=== PATIENT | female | born 1985 | race Caucasian/White ===

== ENCOUNTER 2018-01-08 16:01 | Emergency (ER) | payer OTHER ==
[~2018-01-08] VITALS: Ht 160 cm; Wt 45.4 kg
[2018-01-08] MEDS ORDERED: BUPRENORPHINE HC8 MG SL (16:27)
[2018-01-08] MEDS ORDERED: CIPRO500 MG PO (17:26)
== END 2018-01-08 18:00 | disposition home or self-care (01) ==
LOC: ED 16:01
DX: N39.0 Urinary tract infection, site not specified (principal); F17.200 Nicotine dependence, unspecified, uncomplicated; Z79.899 Other long term (current) drug therapy
CPT/HCPCS: 81001; 96372; 99284; J0696

== ENCOUNTER 2023-06-06 14:21 | Emergency (ER) | payer OTHER ==
[~2023-06-06] VITALS: Ht 160 cm; Wt 49.9 kg
[~2023-06-06 14:21] MED LIST: BUPRENORPHINE HC8 MG SL; CIPRO500 MG PO
--- OUTSIDE RECORDS SUMMARY | 2023-06-06 14:24 | XMS ---
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 EVarsha VISIT COUNT (12 MO.) 1 OPAL [facility] TOTAL 1 NOTE: Visits indicate total known visits. ED/UCC VISIT TRACKING (12 MO.) 06/06/2023 14:23 [facility] TYPE: Emergency COMPLAINT: - FLU/COLD SYMPTOMS INPATIENT VISIT TRACKING (12 MO.) No inpatient visits to display in this time frame [email or web address]
[2023-06-06] MEDS ORDERED: VENTOLIN HFA18 GM INH (15:27)
[2023-06-06 15:40] VITALS: BP 130/88
== END 2023-06-06 15:40 | disposition home or self-care (01) ==
LOC: ED 14:21
DX: B34.9 Viral infection, unspecified (principal); J45.990 Exercise induced bronchospasm; F17.200 Nicotine dependence, unspecified, uncomplicated
CPT/HCPCS: 99283

== ENCOUNTER 2024-07-07 14:40 | Emergency (ER) | payer OTHER ==
[~2024-07-07] VITALS: Ht 160 cm; Wt 50.3 kg
[~2024-07-07 14:40] MED LIST changes: +VENTOLIN HFA18 GM INH
[2024-07-07] MEDS ORDERED: AMOXICILLIN875 MG PO (16:53)
[2024-07-07] MEDS ORDERED: predniSONE 20 MG TAB PO ONE (18:00)
[2024-07-07] MEDS ORDERED: PREDNISONE20 MG PO (18:07)
[2024-07-07 18:33] LABS: BILIRUBIN, URINE NEGATIVE (negative); BLOOD/HGB, URINE NEGATIVE (Negative); KETONE, URINE NEGATIVE (Negative); LEUK ESTERASE, URINE NEGATIVE (negative); NITRITE, URINE NEGATIVE (negative)
[2024-07-07 18:50] VITALS: BP 137/84
[2024-07-07 18:50] LABS: BACTERIA, URINE NONE SEEN /hpf (negative); CASTS, URINE NONE SEEN \\lpf; COLLECTION TYPE, URINE CLEAN CATCH; CRYSTALS, URINE NONE SEEN (0-1+); EPITHELIAL CELLS, URINE SQUAMOUS 1+ /lpf (0-1+); RED BLOOD CELLS, URINE 0-1 /hpf (0-5); REFLEX CULTURE, URINE No (No); WHITE BLOOD CELLS, URINE 0-1 /HPF (0-5)
== END 2024-07-07 18:38 | disposition home or self-care (01) ==
LOC: ED 14:40
PROVIDERS: Emergency Medicine
DX: J20.9 Acute bronchitis, unspecified (principal); F17.200 Nicotine dependence, unspecified, uncomplicated
CPT/HCPCS: 81001; 99284; J7512

== ENCOUNTER 2025-02-10 13:21 | Emergency (ER) | payer OTHER ==
[~2025-02-10] VITALS: Ht 160 cm; Wt 47.0 kg
[~2025-02-10 13:21] MED LIST changes: +AMOXICILLIN875 MG PO; +PREDNISONE20 MG PO
[2025-02-10] MEDS ORDERED: DIPHTH,PERTUSS(ACELL),TET VAC 0.5 ML SYRINGE IM ONE (15:30)
[2025-02-10 15:45] VITALS: BP 118/62
== END 2025-02-10 15:45 | disposition home or self-care (01) ==
LOC: ED 13:21
DX: S61.411A Laceration without foreign body of right hand, initial encounter (principal); W26.0XXA Contact with knife, initial encounter; F17.200 Nicotine dependence, unspecified, uncomplicated; Z79.899 Other long term (current) drug therapy
CPT/HCPCS: 99282

== ENCOUNTER 2025-02-17 17:14 | Emergency (ER) | payer OTHER ==
[~2025-02-17] VITALS: Ht 160 cm; Wt 48.6 kg
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
[2025-02-17] MEDS ORDERED: ASPIRIN 81 MG CHEW PO ONE (17:30)
[2025-02-17] MEDS ORDERED: NITROGLYCERIN 0.4 MG SUBL SL PRN (17:30)
[2025-02-17 17:52] LABS: BASOPHILS 0.2 % (0.1-1.2); EOSINOPHILS 0.2 % (0.7-5.8); LYMPHOCYTES 13.8 % (19.3-51.7); MCH 31.7 PG (25.6-32.2); MCHC 33.3 g/dL (32.2-35.5); MCV 95.2 fL (79.4-94.8); MONOCYTES 5.3 % (4.7-12.5); NEUTROPHILS 80.2 % (34.0-71.1); RBC 3.97 M/uL (3.93-5.22)
[2025-02-17 18:13] LABS: ALT (SGPT) 23.0 U/L (14-59); AST (SGOT) 24.0 U/L (15-37); GLOMERULAR FILTRATION RATE,EST 103.0 mL/min (>60); PROTEIN, TOTAL 7.6 g/dL (6.4-8.2); UREA NITROGEN 9.0 mg/dL (7-18)
[2025-02-17] MEDS ORDERED: POTASSIUM CHLORIDE 10 MEQ TABCR PO ONE (18:45)
[2025-02-17 18:53] VITALS: BP 129/74
--- NOTE | 2025-02-18 21:36 | EKG ---
[facility] [address] [facility] [address] [place] [address] Signed Normal sinus rhythm Rightward axis Borderline ECG No previous ECGs available Confirmed by Omayra Gamboa MD () on 02/18/2025 9:35:51 PM Electronically Signed By: OMAYRA GAMBOA MD 02/18/25 2136 PATIENT NAME: BLAZE BARNARD AGUSTÍN Electrocardiogram DATE OF : 83 PHYSICIAN: OMAYRA GAMBOA MD REPORT #: [id number] REPORT IS CONFIDENTIAL AND NOT TO BE RELEASED WITHOUT AUTHORIZATION
== END 2025-02-17 19:34 | disposition home or self-care (01) ==
LOC: ED 17:14
PROVIDERS: Emergency Medicine
DX: R00.2 Palpitations (principal); F17.200 Nicotine dependence, unspecified, uncomplicated; Z59.89 Other problems related to housing and economic circumstances
CPT/HCPCS: 36415; 71045; 80053; 83735; 84484; 85025; 93005; 93010; 93246; 99285-25; A9270